=== PATIENT | female | born 1980 | race Caucasian/White ===

== ENCOUNTER → 2024-01-17 14:12 | Outpatient (CLI) | payer OTHER, SELFPAY ==
--- NOTE | 2024-01-17 14:16 | DI.US.S_ITS ---
PROCEDURE: US FINE NEEDLE ASPIRATION INDICATIONS: Nontoxic single thyroid nodule TECHNIQUE: The indications, alternatives, benefits, risks, and complications of the procedure were explained to the patient. Written informed consent was obtained and placed in the chart. The thyroid region was examined sonographically and a site was chosen for ultrasound guided percutaneous sampling. The skin was prepared and draped in the usual fashion, and anesthetized with 1% lidocaine infiltrated from the skin down to the thyroid gland. Multiple passes were then performed, with contents emptied into an appropriate pathology specimen container. A bandage was applied to the area of access at completion of the study. COMPARISON: None. FINDINGS: Location(s) of lesion(s) sampled: Left inferior pole nodule Kiana: 25 gauge hypodermic needles. Number of passes: 6 Medications: 1% lidocaine for local anaesthesia. Complications: None. IMPRESSION: Successful ultrasound-guided thyroid nodule fine needle aspiration, with cytology results pending. Please see chart below for management recommendations based on cytology results. [place] [facility] ReportingRecommendationsNon-diagnostic* Repeat US-guided FNA, with on-site cytology evaluation if possible. * Repeated non-diagnostic nodules without high suspicion US features: close observation vs surgical consult. * Consider surgery if nodule has high suspicion US features, grows >20% in 2 dimensions on followup, or patient has clinical risk factors for malignancy. Benign* If nodule has high suspicion US features: repeat US and FNA within 12 months. * If nodule has low to intermediate suspicion US features: repeat US at 12-24 months. If nodule grows (20% increase in at least 2 dimensions, with minimal increase of 2 mm or >50% change in volume), or development of new suspicious US features, then repeat FNA or continue followup. * If nodule has very low suspicion US features: followup US at >24 months. Atypia of undetermined significance, follicular lesion of undetermined significanceRepeat FNA, molecular testing, followup US, or surgical consult.Follicular neoplasm, suspicious for follicular neoplasmSurgical consult; also consider molecular testing. Suspicious for malignancySurgical consult.MalignantSurgical consult. Dictated by: Kristopher Acosta M.D. on 01/17/2024 at 16:37 Approved by: Kristopher Acosta M.D. on 01/17/2024 at 16:37
--- NOTE | 2024-01-17 15:00 | PATH_ITS ---
Note [facility] Accession Number: [id number] TESTS RESULT FLAG UNITS REF RANGE LAB Clinician Provided Cytology Information No. of containers..01 Other (Miscellaneous) No. of containers..02 Previously Prepared Cytology Slide Source: LEFT THYROID NODULE DIAGNOSIS: LEFT THYROID NODULE ATYPIA OF UNDETERMINED SIGNIFICANCE. [place] CATEGORY III. ATYPIA OF UNDETERMINED SIGNIFIANCE - NUCLEAR ATYPIA. SEE COMMENT. COMMENT: COMMENT: The specimen shows adequate cellularity with follicular epithelial cells arranged in many macro and micro-follicles. Cells in scattered clusters show overlapping and cytologic atypia with enlargement, slightly irregular nuclear borders, mild nuclear chromatin clearing and scattered nuclear grooves. Colloid is present. Hurthle cell clusters are identified. Hence a diagnosis of atypia of undetermined significance is favored. The cytologic interpretation incorporates the [facility] system for reporting thyroid cytopathology. The risk of malignancy in the category AUS category is 5-15%; therefore close clinical follow-up with repeat FNA in 3-6 months is recommended. Pathologist ICD10: 01 R89.6, E04.1 Signed out by: Farrah Hassan MD, Pathologist NPI- [id number] Performed by: Yury Young, Residential [facility] ([facility]) Gross description: 01 30 CC, PINK, CLEAR RECIEVED: IN CYTOLYT WITH 6 ALCOHOL FIXED AND 6 QUICK STAINED SLIDES ALSO 1 RNA VIAL WILL ON 04-26-2025.VO /VDU 01/20/2024 0639 Local FLAG LEGEND: L-Low Normal,H-High Normal,LL-Alert Low,HH-Alert High <-Panic Low,>-Panic High,A-Abnormal,AA-Critical Abnormal Performed at: [address] [address], [place] [address] Roberto Blackmon MD, Performed at: [address] [address], [place], [place] [id number] MD Roberto Blackmon MD Phone: [phone]
== END ==
LOC: US 14:15
PROVIDERS: Referring Provider Otolaryngology; Visit Provider Otolaryngology
DX: E04.1 Nontoxic single thyroid nodule (principal)
CPT/HCPCS: 10005